=== PATIENT | female | born 1975 | race Caucasian/White ===

== ENCOUNTER 2017-07-17 18:42 | Emergency (ER) | payer BC ==
[~2017-07-17] VITALS: Ht 172.7 cm; Wt 63.5 kg
--- NOTE | 2017-07-17 19:30 | NUR ---
TO BED 9 A 42 YO FEMALE PT BIB SELF C/O HEADACHE X 30 MINUTES PT DENIES ANY INJURY OR TRAUMA. VSS. NAD NOTED. NONDIAPHORETIC. COMFORT MEASURES RENDERED. AWAITING FOR ER MD MUSTAFA.
[2017-07-17] MEDS ORDERED: ONDANSETRON HCL/PF - ER 4 MG/2 ML VIAL IV ONE (20:30)
[2017-07-17] MEDS ORDERED: MORPHINE SULFATE INJ 2 MG/ML DISP.SYRIN IV ONE (20:30)
[2017-07-17] MEDS ORDERED: IV NS 0.9% 1,000 ML BAG IV ONE (20:30)
[2017-07-17] MEDS ORDERED: ONDANSETRON HCL/PF 4 MG/2 ML VIAL ONE (20:34)
[2017-07-17] MEDS ORDERED: MORPHINE SULFATE INJ 4 MG/ML DISP.SYRIN ONE (20:34)
--- NOTE | 2017-07-17 20:40 | NUR ---
PATIENT TO CT
--- NOTE | 2017-07-17 20:50 | NUR ---
STARTE A SALINE LOCK ON THE RIGHT HAND G22.
--- NOTE | 2017-07-17 20:54 | NUR ---
MEDICATED PATIENT ORDERED BY DR URBAN.
[2017-07-17 21:06] LABS: BASOPHILS # (AUTO) 0.4 /CMM (0.0-0.2); BASOPHILS % (AUTO) 2.8 % (0.0-2.0); EOSINOPHILS # (AUTO) 0.1 /CMM (0.0-0.7); EOSINOPHILS % (AUTO) 0.6 % (0.0-6.0); HEMATOCRIT 43 % (39-51); HEMOGLOBIN 14.7 g/dL (13.5-17.5); LYMPHOCYTES # (AUTO) 1.8 /CMM (0.8-4.8); LYMPHOCYTES % (AUTO) 12.2 % (20.0-44.0); MEAN CORPUSCULAR HEMOGLOBIN 31 PG (26.0-33.0); MEAN CORPUSCULAR HGB CONC 34 g/dl (31.0-36.0); MEAN CORPUSCULAR VOLUME 91 fL (80-96); MONOCYTES # (AUTO) 0.6 /CMM (0.1-1.30); MONOCYTES % (AUTO) 4.4 % (2.0-12.0); NEUTROPHILS # (AUTO) 11.6 /CMM (1.8-8.9); PLATELET COUNT (AUTO) 193 /CMM (150-450); RDW COEFFICIENT OF VARIATION 11.8 (11.5-15.0); RED BLOOD CELL COUNT(AUTO) 4.78 MIL/uL (4.5-6.0); WHITE BLOOD COUNT (AUTO) 14.5 K/uL (4.3-11.0)
[2017-07-17 21:14] LABS: CALCIUM, SERUM 9.1 mg/dL (8.5-10.1); CREATININE 0.9 mg/dL (0.6-1.3); POTASSIUM 3.7 mmol/L (3.5-5.1)
[2017-07-17 21:17] LABS: INR 0.9 (0.87-1.13); PROTHROMBIN TIME 9.3 SECS (9.5-12.7)
--- NOTE | 2017-07-17 21:20 | NUR ---
CALLED JELENA, ON THE PHONE WITH DR URBAN. [phone].
[2017-07-17 21:27] LABS: ALBUMIN 3.9 g/dL (3.4-5.0); BILIRUBIN,TOTAL 0.3 mg/dL (0.2-1.0); TOTAL PROTEIN, SERUM 7.9 g/dL (6.4-8.2)
--- NOTE | 2017-07-17 21:37 | NUR ---
CALL FROM [facility]. PT ACCEPTED BY DR BOWLES. BED [id number]. # FOR REPORT [phone] OPTION 1, EXT [phone]
--- NOTE | 2017-07-17 21:39 | NUR ---
CALLED [facility] FOR TRANSPORT, ETA OF 45 MINS WAS GIVEN.
--- NOTE | 2017-07-17 21:48 | NUR ---
Report given to Pawel ANDERSON at [facility] for tana.
--- NOTE | 2017-07-17 22:08 | NUR ---
started a second iv line on the right forearm g18, with good blood return, taped securely.
[2017-07-17 22:28] VITALS: BP 116/73
--- NOTE | 2017-07-17 22:35 | NUR ---
Patient is aaox4, neuro check done. VSS. Nad noted. Report given to [facility].
[2017-07-17] MEDS ORDERED: HYDROMORPHONE 1 MG/1 ML DISP.SYRIN ONE (22:43)
[2017-07-17] MEDS ORDERED: PROMETHAZINE HCL 25 MG/ML AMPUL ONE (22:43)
--- NOTE | 2017-07-17 22:49 | NUR ---
[facility] x[facility] and [facility] out. [facility] picked [facility] by [facility].
[2017-07-17] MEDS ORDERED: HYDROMORPHONE 1 MG/1 ML DISP.SYRIN IV ONE (23:00)
[2017-07-17] MEDS ORDERED: PROMETHAZINE HCL 25 MG/ML AMPUL IV ONE (23:00)
== END 2017-07-17 22:51 | disposition short-term general hospital (02) ==
LOC: ER 18:44 → EDSEX 18:44 → ER 22:51
DX: I60.9 Nontraumatic subarachnoid hemorrhage, unspecified (principal)
CPT/HCPCS: 36415; 70450; 80053; 84702; 85025; 85610; 85730; 96361; 96374; 96375; 99285; A4606 ×2; J1170; J2270; J2405 ×2; J2550; J7030; Z7610 ×2